=== PATIENT | female | born 1980 | race Caucasian/White ===

== ENCOUNTER 2023-02-10 10:00 | Outpatient (RCR) | payer OTHER, SELFPAY ==
--- NOTE | 2022-12-03 16:48 | PTOPEVAL1 ---
Assessment and note entered by Mihir Kelly, PT, DPT Evaluation Information Assessment Status Evaluation Diagnosis monica LE pain Subjective Information Pt is 4 months post , she states she has not had any hip pain prior to her and it get worse as her progressed. She states her pain has lightened up a little bit since then giving but she still needs to take pain medication daily. She reports this as anterior hip pain that is exacerbates by walking, sex, and climbing stairs. She states her L side tends to have more pain. Reported Pain Level Pain Score 5: Self Report Assessment PT Clinical Summary Pedro presents to therapy today for her initial evaluation with a diagnosis of monica hip pain. Today she demonstrates shortening of her hip flexors, with tenderness to palpation in her monica piriformis, quads, and hip flexor insertions. Skilled physical therapy services are indicated to improve core strength, hip mobility, hip strength, manage pain, and to return to PLOF. Plan of Care Interventions Electrical Stimulation,Gait Training,Hot Pack/Cold Pack,Manual Therapy,Neuro Re-education,Patient/ Caregiver Educati,Therapeutic Activities, Therapeutic Exercise PT Services Indicated Yes Treatment Frequency and 1-2x/wk for 8 visits Duration These treatments will address the objective and functional deficits as defined above. The patient will be advanced safely and appropriately in order for the patient to progress towards his/her prior level of function. Additional exercises will be introduced and as well as a comprehensive home exercise program upon discharge, if needed, ?to ensure carryover of functional gains achieved in the clinic. This treatment plan has been reviewed and agreement upon by the patient.
--- NOTE | 2022-12-03 16:48 | OPREHPOC ---
Outpatient Therapy Plan of Care This is a Multidisciplinary Plan of Care that may contain components documented by all disciplines (PT, OT, and ST.) PT Problem 1 PT Problem #1 Knowledge Deficit PT Goal 1 Goal Pt to be IND with issued HEP Target Visit 8 PT Problem 2 PT Problem #2 Pain PT Goal 1 Goal Pt to report hip pain no greater than 3/10 in the last week Target Visit 8 PT Goal 2 Goal Pt to report 75% improvement in overall symptoms. Target Visit 8 PT Problem 3 PT Problem #3 Impaired Strength PT Goal 1 Goal Pt to improve monica hip abduction strength to 4/5 PT Goal 2 Goal Pt to be able to lift and carry 20lb from ground level without an increase in symptoms Target Visit 8
--- NOTE | 2022-12-18 14:37 | PTOPPROG ---
Assessment and note entered by Hilary Ch DPT Evaluation Information Assessment Status Progress Diagnosis monica LE pain Subjective Information Pt reports anterior hip pain that started in the third trimester of her last . Highest recently 3/10 and lowest 0/10. Difficulty lifting her left leg up in the air but has improved. Some tenderness to the touch as well. Urinates 10 times a day and maybe 1 time a day. Denies incontinence or pain with urination. Can hold urine up to 30 minutes. BM up to 3 times a day without pain. Denies history of pelvic pain. Hip pain increases with sitting, sex and squatting. No hip pain prior to . Delivery July 04, vaginal without complications . 3 vaginal deliveries total. No other FUR SCRAPER, b/b issues or hip issues in the past. Not . Assessment PT Clinical Summary The patient reports some improvements in pain since starting therapy but continues to have anterior hip pain with sitting and other activities. She reports no significant pelvic floor concerns at this time. She will benefit from continued therapy to address pain, strength, and return to prior level of function. Plan of Care Interventions Electrical Stimulation,Gait Training,Hot Pack/Cold Pack,Manual Therapy,Neuro Re-education,Patient/ Caregiver Education,Therapeutic Activities, Therapeutic Exercise PT Services Indicated Yes Treatment Frequency and 2 times a week for 8 visits Duration These treatments will address the objective and functional deficits as defined above. The patient will be advanced safely and appropriately in order for the patient to progress towards his/her prior level of function. Additional exercises will be introduced and as well as a comprehensive home exercise program upon discharge, if needed, ?to ensure carryover of functional gains achieved in the clinic. This treatment plan has been reviewed and agreement upon by the patient.
--- NOTE | 2023-01-08 14:21 | PCPTNOTE ---
Patient called & cancelled scheduled appointment this date due to being unable to make her appointment time.
--- NOTE | 2023-01-15 12:05 | PTOPPROG ---
Assessment and note entered by Mihir Kelly, PT, DPT Evaluation Information Assessment Status Progress Diagnosis monica LE pain Subjective Information Pt states she is not currently having any pain. She states she has progressed to only having pain 3-4 days a week, she states the intensity and during of the pain has stayed about the same. Assessment PT Clinical Summary Patients presents to therapy today for her progress report following 8 visits of skilled therapy to treat her hip pain. Today she demonstrates improve global hip strength and improved hip ROM. She continues to have core strength and impaired movement mechanics with functional tasks. Continuation of skilled services are indicated to continue progressing towards goals, to manage pain, and to return to PLOF. Plan of Care Interventions Electrical Stimulation,Gait Training,Hot Pack/Cold Pack,Manual Therapy,Neuro Re-education,Patient/ Caregiver Educati,Therapeutic Activities, Therapeutic Exercise PT Services Indicated Yes Treatment Frequency and 1x/wk for 8 visits Duration These treatments will address the objective and functional deficits as defined above. The patient will be advanced safely and appropriately in order for the patient to progress towards his/her prior level of function. Additional exercises will be introduced and as well as a comprehensive home exercise program upon discharge, if needed, ?to ensure carryover of functional gains achieved in the clinic. This treatment plan has been reviewed and agreement upon by the patient.
--- NOTE | 2023-01-22 09:43 | PCPTNOTE ---
Patient called & cancelled scheduled appointment this date due to her child being sick.
--- NOTE | 2023-02-05 10:27 | PCPTNOTE ---
Patient called to cancel due to sick child.
--- NOTE | 2023-02-10 10:46 | PTOPDC ---
Assessment and note entered by Mihir Kelly, PT, DPT Evaluation Information Assessment Status Discharge Diagnosis monica LE pain Subjective Information Pt states things are going really well. She states she is only having pain 1-2 times a week now and this happens when she is doing a lot of housework. She states when she is having pain she does her stretches and these hell to decrease her pain. Reported Pain Level Pain Score 0: Self Report Assessment PT Clinical Summary Patients presents to therapy today for her progress report following 11 visits of skilled therapy to treat her hip pain. Today she demonstrates improve hip strength and ROM. She reports less frequency and intensity of pain. She has met or progressed towards all of her therapy goals and would like to be discharged at this time . Plan of Care PT Services Indicated No
== END 2023-02-10 15:01 | disposition home or self-care (01) ==
LOC: ANHGOSHPT 10:00
PROVIDERS: Visit Provider Family Medicine
DX: M79.604 Pain in right leg (principal); M79.605 Pain in left leg
CPT/HCPCS: 97110; 97112; 97140; 97161; 97530

== ENCOUNTER 2024-05-25 08:14 | Outpatient (CLI) | payer OTHER, SELFPAY ==
--- NOTE | ~2024-05-25 | US_ITS ---
Abdominal Sonogram: Real-time sonographic imaging of the abdomen was performed. Clinical History: Abdominal pain Findings: The liver appears normal with no evidence of mass lesion or bile duct dilatation. Main por alejandra vein demonstrates normal direction of flow. The spleen is normal in size without evidence of foca l lesion. The gallbladder is well distended, and appears normal with no evidence of gallstone or wal l thickening. The common bile duct measures 5 mm. The visualized pancreas, aorta, and IVC are unrema rkable. The right kidney measures 10.2 cm in length and the left kidney measures 12.6 cm. There is no hydronephrosis or renal calculus. Impression: Unremarkable abdominal ultrasound. Reviewed, dictated and finalized at location . [employer] Impression: Unremarkable abdominal ultrasound.
== END 2024-05-25 08:15 | disposition home or self-care (01) ==
PROVIDERS: PCP Family Medicine; Visit Provider Nurse Practitioner Family
DX: R10.9 Unspecified abdominal pain (principal)
CPT/HCPCS: 76700